=== PATIENT | female | born 1990 | race Caucasian/White ===

== ENCOUNTER 2018-11-14 18:48 | Emergency (ER) | payer OTHER ==
[2018-11-14 20:47] VITALS: BP 105/71
[2018-11-14] MEDS ORDERED: Azithromycin TAB* 250 MG PO ONE (20:55)
--- NOTE | 2018-11-14 20:56 | UC ---
Respiratory Complaint HPI - HPI Summary HPI Summary: 28-year-old woman comes in with a chief complaint of 10 days of upper respiratory tract infection symptoms. Started out with a runny nose cough and chest congestion. It seems to have settled down more into her chest and she's been coughing pretty frequently. She did have a fever earlier on no fevers recently. She also did have some wheezing. The wheezing is gotten better she has no history of asthma. [id number] medications have been helping with the symptoms some. - History of Current Complaint Chief Complaint: UCRespiratory Stated Complaint: COUGH,EYE CONCERN Time Seen by Provider: 11/14/18 20:47 Hx Last Menstrual Period: 11/10/18 Pain Intensity: 0 - Allergies/Home Medications Allergies/Adverse Reactions: Allergies Allergy/AdvReac Type Severity Reaction Status Date / Time SSRI Medication Allergy Insomnia Uncoded 11/14/18 20:41 and Tachycardia Home Medications: Home Medications Control Pill 1 tab PO DAILY 11/14/18 [History Confirmed 11/14/18] Cholecalciferol (Vitamin D3) [Vitamin D3] 50,000 unit PO WE 11/14/18 [History Confirmed 11/14/18] Vitamin THERAPEUTIC TAB* [Theragran TAB*] 1 tab PO DAILY 11/14/18 [History Confirmed 11/14/18] clonazePAM TAB(*) [KlonoPIN TAB(*)] 1 mg PO TID PRN 11/14/18 [History Confirmed 11/14/18] PMH/Surg Hx/FS Hx/Imm Hx Previously Healthy: Yes - Surgical History Surgical History: Yes Surgery Procedure, Year, and Place: Lithotripsies - Family History Known Family History: Positive: Non-Contributory - Social History Alcohol Use: Rare Substance Use Type: Marijuana Substance Use Comment - Amount & Last Used: Weekly Smoking Status (MU): Heavy Every Day Tobacco Smoker Type: Cigarettes Amount Used/How Often: 1/2 PPD Length of Time of Smoking/Using Tobacco: Since Age 18 Household Exposure Type: Cigarettes Review of Systems All Other Systems Reviewed And Are Negative: Yes Constitutional: Positive: Fever Skin: Positive: Negative, Rash - DRY SKIN AROUND EYES Eyes: Positive: Negative ENT: Positive: Nasal Discharge, Sinus Congestion Respiratory: Positive: Cough, Other - SEE HPI Cardiovascular: Positive: Negative Gastrointestinal: Positive: Negative Motor: Positive: Negative Musculoskeletal: Positive: Negative Neurological: Positive: Negative Psychological: Positive: Negative Is Patient Immunocompromised?: No Physical Exam Triage Information Reviewed: Yes Appearance: No Pain Distress, Well-Nourished, Ill-Appearing - MILD Vital Signs: Initial Vital Signs Temp 99.8 F 11/14/18 20:39 Pulse 100 11/14/18 20:39 Resp 18 11/14/18 20:39 BP 105/71 11/14/18 20:39 Pulse Ox 100 11/14/18 20:39 Vital Signs Reviewed: Yes Eye Exam: Normal Eyes: Positive: Conjunctiva Clear ENT: Positive: Pharyngeal erythema, Nasal congestion, Nasal drainage, TMs normal Neck exam: Normal Neck: Positive: Supple Respiratory: Positive: Lungs clear, Normal breath sounds, No respiratory distress Cardiovascular: Positive: RRR Musculoskeletal Exam: Normal Musculoskeletal: Positive: Strength Intact, ROM Intact Neurological Exam: Normal Neurological: Positive: Alert, Muscle Tone Normal Psychological Exam: Normal Psychological: Positive: Age Appropriate Behavior Skin: Positive: Other - DRY SKIN AROUND EYES Respiratory Course/Dx - Differential Dx/Diagnosis Provider Diagnosis: Bronchitis Discharge - Sign-Out/Discharge Documenting (check all that apply): Patient Departure All imaging exams completed and their final reports reviewed: No Studies - Discharge Plan Condition: Stable Disposition: HOME Prescriptions: Azithromycin 250 mg PO DAILY #4 tablet Patient Education Materials: Acute Bronchitis (ED) Referrals: [facility] [place] [facility] [Outside] Additional Instructions: FOLLOW UP WITH YOUR DOCTOR IF NOT COMPLETELY IMPROVED. GET REEVALUATED SOONER FOR ANY WORSENING OF YOUR CONDITION OR ANY QUESTIONS OR CONCERNS. - Billing Disposition and Condition Condition: STABLE Disposition: Home
== END 2018-11-14 21:00 | disposition home or self-care (01) ==
LOC: UCCORT 18:48
DX: J40 Bronchitis, not specified as acute or chronic (principal); R09.81 Nasal congestion; F17.210 Nicotine dependence, cigarettes, uncomplicated; Z88.8 Allergy status to other drugs, medicaments and biological substances
CPT/HCPCS: 99202; A9270-GY; G0463

== ENCOUNTER 2019-12-07 19:53 | Emergency (ER) | payer OTHER ==
--- NOTE | 2019-12-07 20:03 | ED ---
Nausea/Vomiting/Diarrhea HPI - HPI Summary HPI Summary: 29 yo with diarrhea x 3 days ago, followed by 2 days with more vomiting, appetite loss, and acidic stomach. She has not been eating and drinking well, has no fever, and has a mild decrease in urine output. Has had about 5 episodes of emesis, and about the same number of loose, non- bloody watery stools. Last vomiting was last evening, last loose stool was yesterday. Mild epigastric pain. Mild frontal headache mostly relieved by ibuprofen 400mg earlier today. No infectious contacts, no cough, dyspnea. Has taken her meds today and kept them down. - History of Current Complaint Stated Complaint: STOMACH COMPLAINT Time Seen by Provider: 12/07/19 19:54 Hx Obtained From: Patient Hx Last Menstrual Period: 11/10/18 Onset/Duration: Sudden Onset, Lasting Days - 3 Timing: Intermittent Episodes Lasting: - minutes Severity Initially: Moderate Severity Currently: Mild Location: Epigastric Character: Cramping Aggravating Factor(s): Food - salad last night left her with some indigestion. Alleviating Factor(s): OTC Analgesics - helped with headache Nausea/Vomiting Presence: Nauseated Nausea/Vomiting Duration: 24-36 hours Vomiting Characteristics: Nonbilious Diarrhea Presence: Yes Diarrhea Frequency: Daily - 2-3 times Diarrhea Duration: 2-3 days Diarrhea Characteristics: Watery - Risk Factors Influenza Risk Factors: Negative Surgical Obstruction Risk Factor(s): Negative - Allergies/Home Medications Allergies/Adverse Reactions: Allergies Allergy/AdvReac Type Severity Reaction Status Date / Time SSRI Medication Allergy Insomnia Uncoded 12/07/19 20:00 and Tachycardia Home Medications: Home Medications clonazePAM TAB(*) [KlonoPIN TAB(*)] 2 mg PO BID 11/14/18 [History Confirmed 09/03] Buprenorp/Nalox 8-2 MG SL TAB [Suboxone 8-2 mg SL TAB*] 0.5 tab.sl SL DAILY [History Confirmed 12/07/19] PMH/Surg Hx/FS Hx/Imm Hx Previously Healthy: Yes - on suboxone, past heroin addiction. Psychiatric History: Reports: Hx Anxiety - Surgical History Surgery Procedure, Year, and Place: Lithotripsies Infectious Disease History: Denies: Traveled Outside the [place] in Last 30 Days - Family History Known Family History: Positive: Cardiac Disease - father has had CHF, Renal Disease - father has had bilateral renal transplants, uncertain of underlying di Negative: Diabetes - Social History Occupation: Employed Full-time Lives: With Family Alcohol Use: Rare Substance Use Type: Reports: Marijuana Substance Use Comment - Amount & Last Used: Weekly Smoking Status (MU): Heavy Every Day Tobacco Smoker Type: Cigarettes Amount Used/How Often: 1/2 PPD Length of Time of Smoking/Using Tobacco: Since Age 18 Review of Systems Constitutional: Negative Eyes: Negative ENT: Negative Respiratory: Negative Positive: Vomiting, Diarrhea, Nausea Genitourinary: Negative Musculoskeletal: Negative Skin: Negative Positive: Headache Psychological: Normal All Other Systems Reviewed And Are Negative: Yes Physical Exam Triage Information Reviewed: Yes Appearance: Positive: Ill-Appearing - looks mildly unwell with mild tachycardia , no respiratory distress. Skin: Positive: Warm Eyes: Positive: Normal, TAVO, Conjunctiva Clear ENT: Positive: Pharynx normal Neck: Positive: Supple, Nontender, No Lymphadenopathy Respiratory/Lung Sounds: Positive: Clear to Auscultation Cardiovascular: Positive: Normal, RRR, Tachycardia. Negative: Leg Edema Left, Leg Edema Right Abdomen Description: Positive: No Organomegaly, Soft, Other: - mild epigastric tenderness without guarding or rebound Bowel Sounds: Positive: Present Musculoskeletal: Positive: Normal, Strength/ROM Intact Neurological: Positive: Normal Psychiatric: Positive: Normal AVPU Assessment: Alert Diagnostics - Vital Signs UA with bili, no ketones, trace blood. - Laboratory Lab Statement: Any lab studies that have been ordered have been reviewed, and results considered in the medical decision making process. Naus/Vom/Diarrhea Course/Dx - Course Course Of Treatment: zofran x 1 dose, advance diet, discussed increased hydration. - Differential Dx/Diagnosis Differential Diagnoses - Female: Esophagitis/Gastritis, Gastroenteritis (Viral) , Gastritis Provider Diagnosis: Gastroenteritis Condition At Discharge: Stable Discharge ED - Sign-Out/Discharge Documenting (check all that apply): Patient Departure All imaging exams completed and their final reports reviewed: No Studies - Discharge Plan Condition: Stable Disposition: HOME Patient Education Materials: Gastroenteritis (ED) Forms: *Work Release Referrals: No Primary Care Phys,NOPCP [Medical Doctor] - Additional Instructions: You have received a dose of zofran tonight; this should allow you to increase your intake. I suggest trying to sip at least a liter of fluids over the next few hours, and eat lightly. Soup, yogurt, cooked fruits and veg, toast would be good options. Anticipate improvement by tomorrow, and I anticipate that you should be able to return to work tomorrow, Continue high intake of fluids for several days, and avoid fried and fatty foods for several days. - Billing Disposition and Condition Condition: STABLE Disposition: Home
[2019-12-07 20:05] VITALS: BP 136/73
[2019-12-07] MEDS ORDERED: Ondansetron ODT TAB* 4 MG PO ONE (20:26)
== END 2019-12-07 20:39 | disposition home or self-care (01) ==
LOC: UCCORT 19:53
DX: K52.9 Noninfective gastroenteritis and colitis, unspecified (principal); F41.9 Anxiety disorder, unspecified; Z79.899 Other long term (current) drug therapy; Z88.8 Allergy status to other drugs, medicaments and biological substances; F17.210 Nicotine dependence, cigarettes, uncomplicated
CPT/HCPCS: 81003; 99212; A9270-GY; G0463